=== PATIENT | male | born 1945 | race Caucasian/White ===

== ENCOUNTER → 2020-09-09 13:20 | Outpatient (CLI) | payer MEDICARE, SELFPAY ==
--- NOTE | 2020-09-09 | DI.US.S_ITS ---
PROCEDURE: US SOFT TISSUE HEAD AND NECK INDICATIONS: Generalized enlarged lymph nodes TECHNIQUE: Real-time scanning was performed of the neck region of interest, with image documentation. COMPARISON: None. FINDINGS: Multiple bilateral, morphologically normal appearing lymph nodes present within the right neck corresponding to the palpable abnormalities, largest measuring 6 mm in maximal short axis. Additionally, a roughly 3 mm hypoechoic soft tissue mass is present involving the right posterior neck. IMPRESSION: 1. Multiple morphologically normal appearing right neck lymph nodes. 2. 3 mm hypoechoic soft tissue mass involving the right posterior neck which may also represent a small lymph node; however no definitive fatty hilum is seen. Dictated by: Umesh DUVAL Interpreted: Sancho Lawson MD on 09/09/2020 at 14:17 Approved by: Sancho Lawson M.D. on 09/09/2020 at 15:43
== END ==
PROVIDERS: PCP Family Medicine; Referring Provider Family Medicine; Visit Provider Family Medicine
DX: R22.1 Localized swelling, mass and lump, neck (principal)
CPT/HCPCS: 76536